=== PATIENT | female | born 1955 | race Caucasian/White ===

== ENCOUNTER 2017-02-02 07:42 | Day surgery (SDC) | payer BC ==
[2017-02-02] MEDS ORDERED: Lactated Ringers 1,000 ML IV SCH (08:15)
[2017-02-02] MEDS ORDERED: Propofol 200 MG/20 ML SDV ONE ×2 (08:40→09:33)
[2017-02-02] MEDS ORDERED: fentaNYL 100 MCG/2 ML SDV ONE (08:40)
[2017-02-02] MEDS ORDERED: Midazolam 1 MG/ML 2 ML SDV ONE (08:40)
[2017-02-02] MEDS ORDERED: Atropine 0.4 MG/ML SDV ONE (09:35)
--- NOTE | 2017-02-02 11:02 | OR ---
DATE OF PROCEDURE: 02/02/2017 PREOPERATIVE DIAGNOSIS: Colon cancer screening. 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 PROCEDURE: Colonoscopy to the cecum with biopsy of proximal right colon subcutaneous mass. SURGEON: Parish Bullock MD. ANESTHESIA: IV anesthesia with monitored anesthesia care. INDICATION: This 61-year-old white female is referred for a colonoscopy for colon cancer screening. She says her last colonoscopic exam was done ten years ago. She does mention that she at some point had polyps. I counseled her for a colonoscopy with possible biopsy and/or polypectomy including risks and alternatives, and she gave her informed consent to proceed. DESCRIPTION OF PROCEDURE: The patient was placed in the left lateral decubitus position. IV anesthesia was administered by the Anesthesia Service. Time-out was held. A rectal exam was performed, which was unremarkable. The flexible video Olympus colonoscope was introduced through her anus, up her rectum, and out her colon all the way to the cecum. In the proximal right colon, we saw a subcutaneous mass. We biopsied this. It had the appearance of a lipoma. The scope was then slowly withdrawn, examining the mucosa throughout. No additional mucosal abnormalities were noted. The scope was retroflexed in the rectum with the distal rectum appearing unremarkable. The scope was straightened and removed. She tolerated the procedure well. Parish Bullock MD /[id number] MTDD
== END 2017-02-02 10:58 | disposition home or self-care (01) ==
LOC: JP.SDS 07:42
PROVIDERS: ATTEND Surgery
DX: Z12.11 Encounter for screening for malignant neoplasm of colon (principal); K63.89 Other specified diseases of intestine; J45.909 Unspecified asthma, uncomplicated; K21.9 Gastro-esophageal reflux disease without esophagitis; Z87.891 Personal history of nicotine dependence
CPT/HCPCS: 45380; J0461; J2250; J2704; J3010; J7120; 88305